=== PATIENT | female | born 1990 ===

== ENCOUNTER → 2021-05-24 | Outpatient (CLI) | payer OTHER ==
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
== END | disposition home or self-care (01) ==
LOC: RADXRMAIN 17:53
PROVIDERS: ATTEND Family Medicine
DX: Z87.828 Personal history of other (healed) physical injury and trauma (principal)
CPT/HCPCS: 70150

== ENCOUNTER 2021-07-03 13:54 | Emergency (ER) | payer OTHER ==
--- NOTE | 2021-07-03 15:20 | XR ---
EXAMINATION TYPE: XR knee complete RT DATE OF EXAM: 07/03/2021 COMPARISON: NONE HISTORY: Knee pain TECHNIQUE: 3 views FINDINGS: No fracture nor dislocation. Joint spaces are normal. No sign of knee joint effusion. IMPRESSION: Negative right knee exam.
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
--- NOTE | 2021-07-03 15:31 | XR ---
EXAMINATION TYPE: XR ankle complete RT DATE OF EXAM: 07/03/2021 COMPARISON: NONE HISTORY: Pain TECHNIQUE: 3 views FINDINGS: Ankle mortise is anatomic. I see no fracture nor dislocation. Joint spaces are normal. IMPRESSION: Negative right ankle exam.
[2021-07-03] MEDS ORDERED: DIPH,PERTUS(ACELL)TETVAC-LF 0.5 ML VIAL IM ONE (16:50)
[2021-07-03] MEDS ORDERED: IBUPROFEN 600 MG TAB PO STA (16:53)
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
[2021-07-03 17:33] VITALS: BP 124/70; PULSE 89; RESP 18; TEMP 98.5
== END 2021-07-03 18:04 | disposition home or self-care (01) ==
LOC: EC 13:54
DX: S80.01XA Contusion of right knee, initial encounter (principal); S90.31XA Contusion of right foot, initial encounter; V89.2XXA Person injured in unspecified motor-vehicle accident, traffic, initial encounter; Y92.410 Unspecified street and highway as the place of occurrence of the external cause
CPT/HCPCS: 90471; 90715; 99283